=== PATIENT | male | born 1995 | race Caucasian/White ===

== ENCOUNTER 2019-07-30 19:42 | Emergency (ER) | payer SELFPAY ==
[~2019-07-30] VITALS: Ht 185.4 cm; Wt 102.6 kg
[2019-07-30 20:03] VITALS: BP 136/87; PULSE 84; RESP 18; Ht 185.4 cm; Wt 102.6 kg
== END 2019-07-30 21:50 | disposition left against medical advice (07) ==
LOC: FTE 19:42
DX: Z53.21 Procedure and treatment not carried out due to patient leaving prior to being seen by health care provider (principal)